=== PATIENT | male | born 1985 | race African-American/Black ===

== ENCOUNTER 2024-09-26 03:15 | Inpatient (IN) | payer MEDICAID ==
[~2024-09-26] VITALS: Ht 170.2 cm; Wt 90.7 kg
[2024-09-26 03:36] VITALS: O2SAT 100
[2024-09-26] MEDS: HALOPERIDOL LACTATE 5MG/ML VIAL IM ONE (04:57)
[2024-09-26] MEDS: DIPHENHYDRAMINE 50MG/ML VIAL IM ONE (04:57)
[2024-09-26] MEDS: LORAZEPAM 2MG/ML UD SYRINGE IV NR (04:58)
[2024-09-26] MEDS: SODIUM CHLORIDE 0.9% 1,000 ML IV ONE (05:27)
[2024-09-26 05:28] LABS: BASOPHILS % 0.3 % (0.0-2.0); EOSINOPHILS % 0.4 % (0.0-5.0); HEMATOCRIT. 51.1 % (42.0-52.0); HEMOGLOBIN. 17.3 g/dL (14.0-18.0); LYMPHOCYTES % 14.7 % (20.0-50.0); MEAN PLATELET VOLUME 10.0 fl (7.4-10.4); MONOCYTES % 7.8 % (2.0-8.0); NEUTROPHILS % 76.8 % (40.0-76.0); PLATELET 176 x1000/uL (130-400); RED BLOOD CELL COUNT 5.46 mill/uL (4.7-6.1); RED CELL DISTRIBUTION WIDTH 13.1 % (11.6-14.6)
[2024-09-26] MEDS: ONDANSETRON HCL 4MG/2ML INJ IV ONE (05:32)
[2024-09-26 05:45] LABS: CREATININE 1.7 mg/dL (0.6-1.3); UREA NITROGEN BLOOD 33 mg/dL (9-23)
[2024-09-26 05:46] LABS: TROPONIN I HIGH SENSITIVITY 7 ng/L (3.0-53)
[2024-09-26 05:48] LABS: ETHANOL BLOOD < 10 mg/dL (<10)
[2024-09-26] MEDS: LORAZEPAM 2MG/ML UD SYRINGE IM NR (06:00)
[2024-09-26] MEDS: LEVETIRACETAM 500MG PREMIX 100 ML IV ONE ×2 (06:00)
[2024-09-26 10:00] VITALS: BP 132/88; PULSE 103; RESP 20; TEMP 35.6952
[2024-09-26] MEDS ORDERED: *PATIENT'S OWN MEDICATION STORAGE XX SCH (10:15)
[2024-09-26 12:00] VITALS: BP 134/94; PULSE 97; RESP 20; TEMP 35.8; O2SAT 100
[2024-09-26] MEDS ORDERED: HALOPERIDOL LACTATE 5MG/ML VIAL IM PRN (13:45)
[2024-09-26] MEDS ORDERED: IPRATROPIUM/ALBUTEROL 0.5-3(2.5)MG/3ML NEB HHN PRN (13:45)
[2024-09-26] MEDS ORDERED: DIPHENHYDRAMINE 50MG/ML VIAL IV PRN (13:45)
[2024-09-26] MEDS ORDERED: CLONIDINE 0.1MG TABLET PO PRN (13:45)
[2024-09-26] MEDS ORDERED: ONDANSETRON HCL 4MG/2ML INJ IV PRN (13:45)
[2024-09-26] MEDS ORDERED: ACETAMINOPHEN 325MG TABLET PO PRN ×2 (13:45)
[2024-09-26] MEDS ORDERED: DOCUSATE SODIUM 100MG CAPSULE PO PRN (13:45)
[2024-09-26] MEDS: SODIUM CHLORIDE 0.9% 1,000 ML IV SCH (15:55)
[2024-09-26 16:00] VITALS: BP 125/91; PULSE 98; RESP 20; TEMP 36; O2SAT 100
[2024-09-26 17:46] LABS: TROPONIN I HIGH SENSITIVITY 7 ng/L (3.0-53)
[2024-09-26 18:04] LABS: LDL CHOLESTEROL 97.0 mg/dL (5-100); TRIGLYCERIDE 104.0 mg/dL (0-150)
[2024-09-26 20:00] VITALS: BP 124/78; PULSE 104; RESP 16; TEMP 37.3; O2SAT 100
[2024-09-26] MEDS: DIVALPROEX SODIUM 500MG DR TABLET PO SCH (20:36)
[2024-09-27] VITALS: BP 126/84; PULSE 90; RESP 16; TEMP 36.6; O2SAT 97
[2024-09-27 04:00] VITALS: BP 139/86; PULSE 93; RESP 16; TEMP 36.4; O2SAT 99
[2024-09-27 07:30] LABS: BASOPHILS % 0.6 % (0.0-2.0); EOSINOPHILS % 4.4 % (0.0-5.0); HEMATOCRIT. 44.2 % (42.0-52.0); HEMOGLOBIN. 14.5 g/dL (14.0-18.0); LYMPHOCYTES % 36.6 % (20.0-50.0); MEAN PLATELET VOLUME 9.4 fl (7.4-10.4); MONOCYTES % 8.5 % (2.0-8.0); NEUTROPHILS % 49.9 % (40.0-76.0); PLATELET 107 x1000/uL (130-400); RED BLOOD CELL COUNT 4.62 mill/uL (4.7-6.1); RED CELL DISTRIBUTION WIDTH 13.1 % (11.6-14.6)
[2024-09-27 07:50] LABS: CREATININE 1.1 mg/dL (0.6-1.3); UREA NITROGEN BLOOD 26 mg/dL (9-23)
[2024-09-27 07:52] LABS: ASPARTATE AMINOTRANSFERASE 29 IU/L (<34); BILIRUBIN TOTAL 0.9 mg/dL (0.1-1.0); PROTEIN TOTAL 5.5 g/dL (6.0-8.3)
[2024-09-27 08:00] VITALS: BP 139/80; PULSE 74; RESP 18; TEMP 36.4; O2SAT 98
[2024-09-27] MEDS ORDERED: LORAZEPAM 2MG/ML UD SYRINGE IV PRN (09:16)
[2024-09-27 12:00] VITALS: BP 147/89; PULSE 89; RESP 18; TEMP 36.8; O2SAT 100
== END 2024-09-27 13:28 | disposition left against medical advice (07) | DRG 53 ==
LOC: ER 03:15 → EDBEDREQ 06:47 → 5WST 07:49 → EDBEDREQTM 07:51 → EDBEDREQ 07:51 → ENRESERV 08:06
PROVIDERS: ADMIT Family Medicine Adult Medicine; ATTEND Family Medicine Adult Medicine
DX: G40.909 Epilepsy, unspecified, not intractable, without status epilepticus (principal); N17.9 Acute kidney failure, unspecified; M62.82 Rhabdomyolysis; R55 Syncope and collapse; R00.0 Tachycardia, unspecified; F20.9 Schizophrenia, unspecified; F31.9 Bipolar disorder, unspecified; F43.10 Post-traumatic stress disorder, unspecified; Z53.29 Procedure and treatment not carried out because of patient's decision for other reasons
CPT/HCPCS: 36415; 80048; 80053; 80061; 80307; 80320; 80329; 82550; 83036; 84443; 84484; 85025; 93005; 93306; 99291; A4606; J1200; J1630; J1953; J2060; J2405; J7030; G0480